=== PATIENT | female | born 1930 | race Caucasian/White ===

== ENCOUNTER 2017-03-17 15:59 | Inpatient (IN) | payer OTHER, MEDICARE ==
[~2017-03-17] VITALS: Ht 149.9 cm; Wt 59.0 kg
--- NOTE | ~2017-03-17 | EKG ---
[address] [address] ELECTROCARDIOGRAM REPORT Name: SANDEEP RUSTLLA Room #: 431-P ADM IN M.R.#: [id number] Admission: 03/17/17 Attend Phys: Kimber Burroughs Discharge: Date of : [birth year] Report #: [id number] THIS REPORT FOR: //name// [facility] ED Test Date: 2017-03-17 Test Time: 16:42:17 Pat Name: PHANI RUST Department: Room: [facility] Gender: F Campaign Manager: Sterling PATE : 1930 Requested By: Mehdi Ellison Order Number: [id number] MD: Jose Antonio Caal Measurements Intervals [place] Rate: 69 P: 51 [place]: 171 QRS: 18 QRSD: 99 T: 53 QT: 392 QTc: 420 Interpretive Statements Sinus rhythm No previous ECG available for comparison Electronically Signed On 03-17-2017 20:20:46 REPORTS ANALYSIS MANAGER by Jose Antonio Caal [email or web address] <ELECTRONICALLY SIGNED> By: Jose Antonio Caal MD 03/17/172019 41 1642 Jose Antonio Caal MD /KYLIE
--- NOTE | ~2017-03-17 | HC ---
[facility] [place] [address] CONSULTATION Name: PHANI RUST Room #: 429-P ADM IN M.R.#: [id number] Admission: 03/17/17 Attend Phys: Kimber Burroughs Discharge: Date of : [birth year] Report #: [id number] THIS REPORT FOR: //name// CC: ANTONY Burroughs CHIEF COMPLAINT: Left hip pain status post fall. HISTORY OF PRESENT ILLNESS: The patient is a pleasant 86-year-old female who was admitted through the emergency department at [facility] yesterday status post unwitnessed fall x 2 at her independent living facility at ____. The patient reports that she fell yesterday, was unable to stand up without assistance, but was able to proceed over to emergency button to push to get help. Then, per family reports about an hour and a half to two hours later, the patient fell second time. Following this fall, the patient reports significant left hip pain. She was transported by EMS to the Emergency Department at [facility] where she had x-rays and a CT scan performed of the left hip and pelvis showing superior pubic rami fracture as well as the greater trochanter fracture. The patient reports that she is resting comfortably today and is minimal pain. She reports that she typically lives alone in her independent living apartment and ambulates without assistance. The patient's daughter and son-in-law are at bedside today. MEDICATION ALLERGIES: SULFA, AMOXICILLIN. MEDICATIONS: Please see MORF dosing, but include donepezil, diltiazem, amlodipine, colestipol HCl, aspirin, losartan, memantine, travoprost, and Keflex. PAST MEDICAL AND SURGICAL HISTORY: Include hypertension and dementia. SOCIAL HISTORY: The patient reports that she lives alone in her independent living apartment at ____. She is a former tobacco user, quit greater than 1 year ago. She denies any alcohol or recreational drug use. PHYSICAL EXAMINATION: VITAL SIGNS: Blood pressure 156/64, pulse rate 76, temperature 36.9 degrees Celsius. GENERAL: The patient is awake, alert, in no acute distress. EXTREMITIES: Bilateral lower extremities neurovascularly intact. Left lower extremity, calf is soft, nontender. Pulses are present. No pain with range of motion of the foot and ankle. The patient complains of pain with attempted passive range of motion of the left hip. Tenderness to palpation of the left greater trochanteric bursa area as well as tenderness to palpation of the left anterior pelvis and groin region. SKIN: [place] [address] CONSULTATION Name: PHANI RUST Room #: 429-P [facility] IN .R.#: [id number] Admission: 03/17/17 Attend Phys: Kimber Burroughs Discharge: Date of : [birth year] Report #: [id number] IMAGING: CT scan of the left pelvis performed on 03/17/2017 shows an acute nondisplaced fracture of the left superior greater trochanter. No extension of the intertrochanteric femur, femoral head or neck is noted. Acute nondisplaced fracture at the distal left superior pubic ramus and left pubic bone. IMPRESSION: 1. Left greater trochanteric fracture, nondisplaced. 2. Left superior pubic rami and pubic bone fracture, status post fall. PLAN: We discussed with the patient and her family that these fractures at this time could be treated non-operatively. This would include limiting weightbearing on the left lower extremity with the use of wheelchair or walker for ambulation. We discussed the need for followup radiographs to assess fracture healing on an outpatient basis. We will continue to focus on pain management now but once she is considered stable from a medical standpoint, she could return to either in an independent capacity, but she may need chcf as she will be limited weightbearing on the left lower extremity over the next several weeks. The patient and her family are in agreement with this plan. <ELECTRONICALLY SIGNED> By: LIZABETH Bryant 03/19/17 1252 [id number] 39 LIZABETH Bryant /nt
--- NOTE | ~2017-03-17 | 2DMMODE ---
[facility] [address] [place] [address] 2 D/M-MODE ECHOCARDIOGRAM Name: PHANI RUST Room #: 431-P ADM IN M.R.#: [id number] Admission: 03/17/17 Attend Phys: Kimber Jennings Discharge: Date of : [birth year] Date of Service: 03/18/17 0908 Report #: [id number] THIS REPORT FOR: //name// APPROVED REPORT Study performed: 03/18/2017 08:19:47 EXAM: Comprehensive 2D, Doppler, and color-flow Echocardiogram Patient Location: Bedside Room #: 431 Status: routine BSA: 1.54 HR: 78 bpm BP: 161/54 mmHg Rhythm: NSR Other Information Study Quality: Adequate/no patient mobility Indications Sycnope, aortic murmur, HTN. 2D Dimensions RVDd: 30.96 mm LVEF(%): 61.29 (>50%) IVSd: 9.62 (7-11mm) LVOT Diam: 19.80 (18-24mm) LVDd: 34.69 mm PWd: 10.80 (7-11mm) Ascending Ao: 32.29 (22-36mm) LVDs: 23.57 (25-40mm) Aortic Root: 30.61 mm Hollingsworth's LVEF: 61.29 % Volumes Left Atrial Volume (Systole) Single Plane 4CH: 48.27 mL Single Plane 2CH: 56.33 mL LA ESV Index: 36.00 mL/m2 Aortic Valve AoV Peak Sonu.: 2.02 m/s AO Peak Gr.: 16.33 mmHg LVOT Max P.10 mmHg AO Mean Gr.: 10.12 mmHg AO V2 Mean: 1.53 m/s LVOT Max V: 1.24 m/s AO V2 VTI: 43.15 cm KATIE Vmax: 1.88 cm2 Mitral Valve [facility] [place] [address] 2 D/M-MODE ECHOCARDIOGRAM Name: PHANI RUST Room #: 431-P [facility] IN .R.#: [id number] Admission: 03/17/17 Attend Phys: Kimber Jennings Discharge: Date of : [birth year] Date of Service: 03/18/17 0908 Report #: [id number] E/A Ratio: 0.9 MV Decel. Time: 304.77 ms MV E Max Sonu.: 1.40 m/s MV A Sonu.: 1.64 m/s MV PHT: 88.38 ms IVRT: 64.59 ms Pulmonary Valve PV Peak Sonu.: 1.06 m/s PV Peak Gr.: 4.47 mmHg Pulmonary Vein P Vein S: 0.66 m/s P Vein A: 0.31 m/s P Vein D: 0.49 m/s P Vein A Dur.: 101.5 msec P Vein S/D Ratio: 1.35 Tricuspid Valve TR Peak Sonu.: 2.48 m/s RAP Estimate: 5.00 mmHg TR Peak Gr.: 24.61 mmHg PA Pressure: 30.00 mmHg Left Ventricle The left ventricle is normal size. There is normal LV segmental wall motion. There is normal left ventricular wall thickness. Left ventricular systolic function is normal. LVEF is 60-65%. Mild diastolic dysfunction is present (impaired relaxation pattern). Right Ventricle The right ventricle is normal size. The right ventricular systolic function is normal. Atria Left atrium is mildly dilated. The right atrium size is normal. Aortic Valve Aortic valve is calcified. Trace to mild aortic regurgitation. There is borederline mild valvular aortic stenosis. Calculated aortic valve area is 1.9 cm2 with maximum pressure gradient of 16 mmHg and mean pressure gradient of 10 mmHg. Mitral Valve Mitral valve leaflets are mildly calcified Moderate mitral annular calcification. No mitral regurgitation. Borderline mild mitral stenosis. Mean pressure gradient of 4mmHg. [address] [address] 2 D/M-MODE ECHOCARDIOGRAM Name: PHANI RUST Room #: 431-[facility] IN M.R.#: [id number] Admission: 03/17/17 Attend Phys: Kimber Jennings Discharge: Date of : [birth year] Date of Service: 03/18/17 0908 Report #: [id number] Tricuspid Valve The tricuspid valve is normal in structure. Trace to mild tricuspid regurgitation. Estimated PAP is 30mmHg. Pulmonic Valve The pulmonary valve is normal in structure. Trace pulmonic regurgitation. Great Vessels The aortic root is normal in size. The ascending aorta is normal in size. IVC is normal in size and collapses >50% with inspiration. Pericardium There is no pericardial effusion. <Conclusion> Left ventricular systolic function is normal. There is normal LV segmental wall motion. LVEF is 60-65%. Mild diastolic dysfunction Aortic valve is calcified. Mild valvular aortic stenosis: aortic valve area is 1.9 cm2 with maximum pressure gradient of 16 mmHg and mean pressure gradient of 10 mmHg. Mitral valve leaflets are mildly calcified. Moderate mitral annular calcification. No mitral regurgitation. Pulmonary artery pressure of 30mmHg There is no pericardial effusion. <ELECTRONICALLY SIGNED> By: Eleno Iraheta MD, FACC 03/18/17907 7 7 Eleno Iraheta MD, FACC /INF
[2017-03-17 15:59] VITALS: BP 146/48
[~2017-03-17 15:59] MED LIST: OXYCODONE HCL 55 MG PO
[2017-03-17 16:54] LABS: HEMATOCRIT 37.9 % (37.0-47.0); HEMOGLOBIN 12.6 gm/dL (12.0-15.0); MCH 27.7 pg (26.0-34.0); MCHC 33.2 g/dL (28.0-37.0); MCV 83.5 fL (80.0-100.0); PLATELET COUNT 225 thou/uL (150-400); RBC 4.53 mil/uL (4.20-5.00); RDW 13.2 % (10.5-14.5); WBC 11.3 thou/uL (4.0-11.0)
[2017-03-17 17:00] LABS: MANUAL DIFF YES
[2017-03-17 17:03] LABS: ANION GAP 6 mmol/L (7-16); BUN 26 mg/dL (7-18); CALCIUM 8.9 mg/dL (8.5-10.1); CHLORIDE 102 mmol/L (98-107); CO2 28 mmol/L (21-32); CREATININE 0.8 mg/dL (0.6-1.0); GLUCOSE 166 mg/dL (74-106); POTASSIUM 3.7 mmol/L (3.5-5.1); SODIUM 136 mmol/L (136-145)
[2017-03-17] MEDS ORDERED: ARICEPT 5 MG TAB5 MG PO (17:04)
[2017-03-17] MEDS ORDERED: CARDIZEM CD180 MG PO (17:05)
[2017-03-17] MEDS ORDERED: COLESTID1 GM PO (17:05)
[2017-03-17] MEDS ORDERED: NORVASC2.5 MG PO (17:05)
[2017-03-17] MEDS ORDERED: TRAVATAN Z2.5 ML OPHTHALMIC (17:06)
[2017-03-17] MEDS ORDERED: ASPIR 8181 MG PO (17:06)
[2017-03-17] MEDS ORDERED: COZAAR 50 MG TA50 M2 PO (17:06)
[2017-03-17] MEDS ORDERED: NAMENDA 10 MG T10 MG PO (17:06)
[2017-03-17] MEDS ORDERED: KEFLEX250 MG PO (17:07)
[2017-03-17 17:12] LABS: TROPONIN-I < 0.04 ng/mL (<0.06)
[2017-03-17 18:21] LABS: ABSOLUTE NEUTROPHILS 9.6 thou/uL (1.4-8.2); TOTAL CELL COUNT 100
[2017-03-17 18:22] LABS: ANISOCYTOSIS SLIGHT; MICROCYTES SLIGHT
[2017-03-17 18:58] LABS: URINE BILIRUBIN NEGATIVE (Negative); URINE BLOOD 2+ (Negative); URINE COLOR YELLOW; URINE GLUCOSE-RANDOM* NEGATIVE (Negative); URINE KETONES TRACE (Negative); URINE NITRITE POSITIVE (Negative); URINE PROTEIN (DIPSTICK) TRACE (Negative); URINE SPECIFIC GRAVITY 1.025 (1.003-1.035); URINE UROBILINOGEN 0.2 E.U./dl (0.2-1.0)
[2017-03-17 19:09] LABS: BACTERIA >30 Many /HPF (None Seen); CASTS None Seen /LPF (None Seen); CRYSTALS None Seen /LPF (None Seen); SQUAMOUS 0-3 Few /LPF (0-3); URINE RBC 3-10 Few /HPF (0-2); URINE WBC >25 Many /HPF (0-5)
[2017-03-17 20:00] VITALS: BP 155/53
[2017-03-18 04:00] VITALS: BP 161/54
[2017-03-18 08:10] VITALS: BP 156/64
[2017-03-18 15:02] VITALS: BP 159/55
[2017-03-18 19:25] VITALS: BP 154/62; BP 159/55
[2017-03-18 20:28] VITALS: BP 149/49
[2017-03-19 05:17] VITALS: BP 122/48
[2017-03-19 08:19] VITALS: BP 169/70
[2017-03-19 16:19] VITALS: BP 156/53
[2017-03-19 19:46] VITALS: BP 150/58
[2017-03-20 04:13] VITALS: BP 153/40
[2017-03-20 04:38] LABS: HEMATOCRIT 36.3 % (37.0-47.0); HEMOGLOBIN 12.1 gm/dL (12.0-15.0); MCH 27.8 pg (26.0-34.0); MCHC 33.2 g/dL (28.0-37.0); MCV 83.7 fL (80.0-100.0); RBC 4.34 mil/uL (4.20-5.00); RDW 13.5 % (10.5-14.5); WBC 6.2 thou/uL (4.0-11.0)
[2017-03-20 04:49] LABS: CALCIUM 8.2 mg/dL (8.5-10.1); CREATININE 0.5 mg/dL (0.6-1.0); MAGNESIUM 1.9 mg/dL (1.8-2.4)
[2017-03-20 04:51] LABS: POTASSIUM 2.8 mmol/L (3.5-5.1)
[2017-03-20 08:06] VITALS: BP 148/51
[2017-03-20 12:25] VITALS: BP 134/50
[2017-03-20 15:58] VITALS: BP 150/45
[2017-03-20 17:00] LABS: CALCIUM 8.2 mg/dL (8.5-10.1); CREATININE 0.4 mg/dL (0.6-1.0)
[2017-03-20 17:05] LABS: POTASSIUM 4.4 mmol/L (3.5-5.1)
[2017-03-20 20:30] VITALS: BP 154/46
[2017-03-21 03:36] LABS: HEMATOCRIT 37.9 % (37.0-47.0); HEMOGLOBIN 12.5 gm/dL (12.0-15.0); MCH 27.5 pg (26.0-34.0); MCV 83.5 fL (80.0-100.0); RBC 4.54 mil/uL (4.20-5.00); RDW 13.5 % (10.5-14.5)
[2017-03-21 03:45] LABS: CALCIUM 8.1 mg/dL (8.5-10.1); CREATININE 0.4 mg/dL (0.6-1.0); MAGNESIUM 2.3 mg/dL (1.8-2.4); POTASSIUM 4.8 mmol/L (3.5-5.1)
[2017-03-21 04:00] VITALS: BP 145/40
[2017-03-21 07:31] VITALS: BP 167/48
[2017-03-21] MEDS ORDERED: HYDROCODON-ACE1 EAC7 PO (10:50)
== END 2017-03-21 12:49 | DRG 871 ==
LOC: ER 15:59 → EROBS 17:50 → 4E 17:50
PROVIDERS: Hospitalist; Internal Medicine; Nurse Practitioner
DX: A41.9 Sepsis, unspecified organism (principal); S72.115A Nondisplaced fracture of greater trochanter of left femur, initial encounter for closed fracture; S32.512A Fracture of superior rim of left pubis, initial encounter for closed fracture; N39.0 Urinary tract infection, site not specified; I10 Essential (primary) hypertension; F03.90 Unspecified dementia, unspecified severity, without behavioral disturbance, psychotic disturbance, mood disturbance, and anxiety; W19.XXXA Unspecified fall, initial encounter; E87.6 Hypokalemia; Z28.21 Immunization not carried out because of patient refusal; Z88.1 Allergy status to other antibiotic agents; Z88.2 Allergy status to sulfonamides; Z87.891 Personal history of nicotine dependence; Y93.89 Activity, other specified; Y92.89 Other specified places as the place of occurrence of the external cause; Y99.8 Other external cause status
CPT/HCPCS: 10183

== ENCOUNTER 2017-05-01 13:14 | Inpatient (IN) | payer OTHER, MEDICARE ==
[~2017-05-01] VITALS: Ht 149.9 cm; Wt 47.9 kg
--- NOTE | ~2017-05-01 | EKG ---
[address] [address] ELECTROCARDIOGRAM REPORT Name: PHANI RUST Room #: 217- ADM IN M.R.#: [id number] Admission: 05/01/17 Attend Phys: Abel Whittington MD Discharge: Date of : [birth year] Report #: [id number] THIS REPORT FOR: //name// [facility] Test Date: 2017-05-02 Test Time: 11:24:38 Pat Name: PHANI RUST Department: Room: 217 Gender: F Sock Lining Examiner: TRISTEN : 1930 Requested By: Ashley Mo Order Number: [id number] MD: Jose Antonio Caal Measurements Intervals [place] Rate: 115 P: [place]: QRS: 21 QRSD: 80 T: 19 QT: 337 QTc: 466 Interpretive Statements Atrial fibrillation Borderline T wave abnormalities Baseline wander in lead(s) V1 Compared to ECG 05/01/2017 13:20:22 T-wave abnormality now present Sinus tachycardia no longer present Early repolarization no longer present Electronically Signed On 05-02-2017 17:17:07 PRINTING SCREEN ASSEMBLER by Jose Antonio Caal [email or web address] <ELECTRONICALLY SIGNED> By: Jose Antonio Caal MD 05/02/17 1717 1124 1124 Jose Antonio Caal MD /EPI
--- NOTE | ~2017-05-01 | EKG ---
[place] [address] [employer] [facility] [place] [address] ELECTROCARDIOGRAM REPORT Name: SANDEEP RUSTLLA Room #: 217-P ADM IN M.R.#: [id number] Admission: 05/01/17 Attend Phys: Abel Whittington MD Discharge: Date of : [birth year] Report #: [id number] THIS REPORT FOR: //name// [facility] ED Test Date: 2017-05-01 Test Time: 13:20:22 Pat Name: PHANI RUST Department: Room: [facility] Gender: F Visual Educator: ELIJAH : 1930 Requested By: Lindy Emmanuel Order Number: [id number] MD: Jose Antonio Caal Measurements Intervals [place] Rate: 100 P: 0 WI: 150 QRS: 21 QRSD: 79 T: 31 QT: 342 QTc: 442 Interpretive Statements Sinus tachycardia with irregular rate RSR' in V1 or V2, probably normal variant Nonspecific repol abnormality, diffuse leads Baseline wander in lead(s) V6 Compared to ECG 03/17/2017 16:42:17 RSR' in V1 or V2 now present Early repolarization now present Sinus rhythm no longer present Electronically Signed On 05-01-2017 22:29:35 DENTAL EQUIPMENT INSTALLER AND SERVICER by Jose Antonio Caal [email or web address] <ELECTRONICALLY SIGNED> By: Jose Antonio Caal MD 05/01/17 2229 19 19 Jose Antonio Caal MD /EPI
--- NOTE | ~2017-05-01 | 2DMMODE ---
[facility] [address] [place] [address] 2 D/M-MODE ECHOCARDIOGRAM Name: PHANI RUST Room #: 217-P ADM IN M.R.#: [id number] Admission: 05/01/17 Attend Phys: Abel Whittington, Discharge: Date of : [birth year] Date of Service: 05/03/17 1207 Report #: [id number] THIS REPORT FOR: //name// APPROVED REPORT Study performed: 05/02/2017 10:45:05 EXAM: Comprehensive 2D, Doppler, and color-flow Echocardiogram Patient Location: Bedside Room #: 217 Status: on-call BSA: 1.49 HR: 90 bpm BP: 134/64 mmHg Rhythm: Atrial Fibrillation Other Information Study Quality: Adequate Risk Factors: Cardiac Risk Factors: HTN Indications Congestive Heart Failure Atrial Fibrillation 2D Dimensions LVEF(%): 66.56 (>50%) IVSd: 8.99 (7-11mm) LVOT Diam: 19.00 (18-24mm) LVDd: 40.32 mm PWd: 10.00 (7-11mm) Ascending Ao: 25.52 (22-36mm) LVDs: 25.68 (25-40mm) Aortic Root: 25.32 mm LV Single Plane 4CH: 58.91 % LV Single Plane 2CH: 56.48 % Hollingsworth's LVEF: 57.69 % Biplane EF: 56.3 % Volumes Left Atrial Volume (Systole) Single Plane 4CH: 40.48 mL Single Plane 2CH: 17.49 mL LA ESV Index: 19.00 mL/m2 Aortic Valve AoV Peak Sonu.: 1.28 m/s AO Peak Gr.: 6.50 mmHg LVOT Max P.59 mmHg [facility] [address] [place] [address] 2 D/M-MODE ECHOCARDIOGRAM Name: PHANI RUST Room #: 217-[facility] IN M.R.#: [id number] Admission: 05/01/17 Attend Phys: Abel Whittington, Discharge: Date of : [birth year] Date of Service: 05/03/17 1207 Report #: [id number] Mean Gr.: 3.49 mmHg LVOT Mean P.41 mmHg AO V2 Mean: 0.86 m/s LVOT Max V: 0.83 m/s AO V2 VTI: 20.28 cm LVOT Mean V: 0.55 m/s KATIE (VTI): 2.00 cm2 LVOT V1 VTI: 13.68 cm KATIE Vmax: 1.92 cm2 SV (LVOT): 40.60 mL Mitral Valve MV Peak Gr.: 12.08 mmHg MV Mean Gr.: 5.52 mmHg MV Max Sonu.: 1.73 m/s MV Mean Sonu.: 1.05 m/s MV VTI: 319.56 mm MVA VTI: 127.05 mm2 Pulmonary Valve PV Peak Sonu.: 0.81 m/s PV Peak Gr.: 2.66 mmHg Tricuspid Valve TR Peak Sonu.: 2.47 m/s RAP Estimate: 10.00 mmHg TR Peak Gr.: 24.51 mmHg PA Pressure: 35.00 mmHg Left Ventricle The left ventricle is normal size. There is normal LV segmental wall motion. There is normal left ventricular wall thickness. Left ventricular systolic function is normal. The left ventricular ejection fraction is within the normal range. LVEF is 60%. This study is not technically sufficient to allow evaluation of the LV diastolic function due to atrial fibrillation. Right Ventricle The right ventricle is normal size. The right ventricular systolic function is normal. Atria The left atrium size is normal. The right atrium size is normal. Aortic Valve Aortic valve is calcified. No aortic regurgitation is present. There is no aortic valvular stenosis. Mitral Valve There is mild mitral annular calcification. Mitral valve leaflets are mildly thickened. Mild mitral regurgitation. Mild mitral stenosis. [address] [address] 2 D/M-MODE ECHOCARDIOGRAM Name: PHANI RUST Room #: 217-P [facility] IN M.R.#: [id number] Admission: 05/01/17 Attend Phys: Abel Whittington, Discharge: Date of : [birth year] Date of Service: 05/03/17 1207 Report #: [id number] Mean pressure gradient is 6 mmHg. Tricuspid Valve The tricuspid valve is normal in structure. Mild tricuspid regurgitation. Pulmonary artery pressure is 35 mmHg. Pulmonic Valve The pulmonary valve is normal in structure. There is no pulmonic valvular regurgitation. Great Vessels The aortic root is normal in size. IVC is normal in size and collapses <50% with inspiration. Pericardium There is no pericardial effusion. <Conclusion> The left ventricle is normal size. LVEF is 60%. Aortic valve is calcified. No aortic regurgitation is present. There is no aortic valvular stenosis. There is mild mitral annular calcification. Mitral valve leaflets are mildly thickened. Mild mitral regurgitation. Mild mitral stenosis. Mean pressure gradient is 6 mmHg. The tricuspid valve is normal in structure. Mild tricuspid regurgitation. Pulmonary artery pressure is 35 mmHg. The pulmonary valve is normal in structure. There is no pericardial effusion. <ELECTRONICALLY SIGNED> By: Leroy Deluca MD 05/03/17 1207 06 06 Leroy Deluca MD /INF
[~2017-05-01 13:14] MED LIST changes: +ARICEPT 5 MG TAB5 MG PO; +ASPIR 8181 MG PO; +CARDIZEM CD180 MG PO; +COLESTID1 GM PO; +COZAAR 50 MG TA50 M2 PO; +HYDROCODON-ACE1 EAC7 PO; +KEFLEX250 MG PO; +NAMENDA 10 MG T10 MG PO; +NORVASC2.5 MG PO; +TRAVATAN Z2.5 ML OPHTHALMIC
[2017-05-01 13:15] VITALS: BP 128/53
[2017-05-01 13:42] LABS: ABSOLUTE NEUTROPHILS 5.7 thou/uL (1.4-8.2); BASOPHILS 0.5 % (0.0-2.0); HEMATOCRIT 37.8 % (37.0-47.0); HEMOGLOBIN 12.6 gm/dL (12.0-15.0); LYMPHOCYTES 11.6 % (24.0-44.0); MCH 27.7 pg (26.0-34.0); MCHC 33.3 g/dL (28.0-37.0); MCV 83.4 fL (80.0-100.0); MONOCYTES 7.9 % (1.0-8.0); PLATELET COUNT 252 thou/uL (150-400); RBC 4.54 mil/uL (4.20-5.00); RDW 14.1 % (10.5-14.5); WBC 7.2 thou/uL (4.0-11.0)
[2017-05-01 13:56] LABS: ANION GAP 7 mmol/L (7-16); BUN 15 mg/dL (7-18); CALCIUM 8.9 mg/dL (8.5-10.1); CHLORIDE 98 mmol/L (98-107); CO2 29 mmol/L (21-32); CREATININE 0.7 mg/dL (0.6-1.0); GLUCOSE 163 mg/dL (74-106); POTASSIUM 3.5 mmol/L (3.5-5.1); SODIUM 134 mmol/L (136-145)
[2017-05-01 14:04] LABS: ALBUMIN 3.3 g/dL (3.4-5.0); SGOT 45 U/L (15-37); SGPT 94 U/L (30-65); TOTAL BILIRUBIN 0.3 mg/dL (<0.1-1.0); TOTAL PROTEIN 7.3 g/dL (6.4-8.2); TROPONIN-I < 0.04 ng/mL (<0.06)
[2017-05-01 15:39] VITALS: BP 128/53
[2017-05-01] MEDS ORDERED: NORVASC2.5 MG PO (15:53)
[2017-05-01] MEDS ORDERED: PROBIOTIC1 EAC1 PO (15:53)
[2017-05-01] MEDS ORDERED: ARICEPT 5 MG TAB5 MG PO (15:54)
[2017-05-01] MEDS ORDERED: LASIX 40 MG TAB40 M2 PO (15:57)
[2017-05-01] MEDS ORDERED: FLONASE 0.05%50 MCG NASAL (15:57)
[2017-05-01 16:31] VITALS: BP 128/53
[2017-05-01] MEDS ORDERED: ERGOCAL2500 UNIT PO (19:00)
[2017-05-01] MEDS ORDERED: LIDODERM1 EACH TRANSDERM (19:13)
[2017-05-01] MEDS ORDERED: CARDIZEM CD 30300 M1 (19:21)
[2017-05-01 19:24] VITALS: BP 144/76
[2017-05-01] MEDS ORDERED: MELATONIN1 MG PO (19:24)
[2017-05-01 23:49] VITALS: BP 146/69
[2017-05-02 03:27] VITALS: BP 165/63
[2017-05-02 08:00] VITALS: BP 134/64
[2017-05-02 10:59] LABS: URINE BILIRUBIN NEGATIVE (Negative); URINE BLOOD 1+ (Negative); URINE CLARITY CLEAR; URINE COLOR YELLOW; URINE GLUCOSE-RANDOM* NEGATIVE (Negative); URINE KETONES NEGATIVE (Negative); URINE LEUKOCYTES NEGATIVE (Negative); URINE NITRITE NEGATIVE (Negative); URINE PROTEIN (DIPSTICK) NEGATIVE (Negative); URINE SPECIFIC GRAVITY 1.015 (1.005-1.035); URINE UROBILINOGEN 0.2 E.U./dl (0.2-1.0)
[2017-05-02 11:13] LABS: CASTS None Seen /LPF (None Seen); CRYSTALS None Seen /LPF (None Seen); SQUAMOUS 4-10 Moderate /LPF (0-3); URINE RBC 0-2 Rare /HPF (0-2); URINE WBC None Seen /HPF (0-5)
[2017-05-02 11:14] LABS: BACTERIA 1-9 Few /HPF (None Seen)
[2017-05-02 11:33] VITALS: BP 144/102
[2017-05-02 15:58] VITALS: BP 136/64
[2017-05-02 19:48] VITALS: BP 129/58
[2017-05-03 04:51] VITALS: BP 137/62
[2017-05-03 07:25] VITALS: BP 134/64
[2017-05-03 11:01] LABS: HEMATOCRIT 38.1 % (37.0-47.0); HEMOGLOBIN 12.8 gm/dL (12.0-15.0); MCH 27.4 pg (26.0-34.0); MCHC 33.6 g/dL (28.0-37.0); MCV 81.6 fL (80.0-100.0); RBC 4.67 mil/uL (4.20-5.00); RDW 13.9 % (10.5-14.5); WBC 6.8 thou/uL (4.0-11.0)
[2017-05-03 11:10] LABS: CALCIUM 8.4 mg/dL (8.5-10.1); CREATININE 0.6 mg/dL (0.6-1.0)
[2017-05-03 19:06] VITALS: BP 137/73
[2017-05-04 03:43] VITALS: BP 154/67
[2017-05-04 08:00] VITALS: BP 127/53
[2017-05-04 08:52] LABS: CREATININE 0.6 mg/dL (0.6-1.0); MAGNESIUM 1.8 mg/dL (1.8-2.4); POTASSIUM 3.5 mmol/L (3.5-5.1)
[2017-05-04 12:00] VITALS: BP 115/53
[2017-05-04 13:29] VITALS: BP 115/53
[2017-05-04 15:25] LABS: BE(vivo) 4.6 mmol/L (-2 to +3); HCO3 28.9 mmol/L (22.0-26.0); PO2 60.1 mmHg (80.0-100.0); pH 7.456 (7.360-7.450); sO2 92.2 % (92.0-98.0)
[2017-05-04 16:00] VITALS: BP 139/52
[2017-05-04 21:13] VITALS: BP 124/54
[2017-05-05 05:26] VITALS: BP 136/51
[2017-05-05 08:10] VITALS: BP 137/65
[2017-05-05 09:14] LABS: CALCIUM 8.7 mg/dL (8.5-10.1); CREATININE 0.6 mg/dL (0.6-1.0); MAGNESIUM 2.1 mg/dL (1.8-2.4); POTASSIUM 3.5 mmol/L (3.5-5.1)
[2017-05-05] MEDS ORDERED: MUCINEX600 MG PO (10:23)
[2017-05-05] MEDS ORDERED: CARDIZEM CD180 MG PO (10:23)
[2017-05-05] MEDS ORDERED: MIRALAX17 GM PO (10:23)
[2017-05-05] MEDS ORDERED: ENOXAPARIN40 MG/0.1 SUBQ (10:23)
[2017-05-05] MEDS ORDERED: TOPROL XL25 MG PO (10:23)
[2017-05-05] MEDS ORDERED: PULMICORT0.5 MG/22 INH (10:23)
[2017-05-05] MEDS ORDERED: IPRATROPIU0.2 MG/1 M INH (10:23)
[2017-05-05] MEDS ORDERED: LEVALBUTER0.63 MG/3 INH ×2 (10:23)
[2017-05-05] MEDS ORDERED: POTASSIUM20 PO (10:23)
[2017-05-05 12:10] VITALS: BP 143/57
[2017-05-05] MEDS ORDERED: REMERON15 MG PO (13:08)
[2017-05-05 15:48] VITALS: BP 140/70
[2017-05-06 01:08] LABS: ADENOVIRUS Negative (Negative); INFLUENZA A Positive (Negative); INFLUENZA B Negative (Negative); METAPNEUMOVIRUS Negative (Negative); PARAINFLUENZA 1 Negative (Negative); PARAINFLUENZA 2 Negative (Negative); PARAINFLUENZA 3 Negative (Negative); RHINOVIRUS Negative (Negative); RSV A Negative (Negative); RSV B Negative (Negative)
[2017-05-06 03:30] LABS: CALCIUM 8.5 mg/dL (8.5-10.1); CREATININE 0.5 mg/dL (0.6-1.0); MAGNESIUM 1.9 mg/dL (1.8-2.4); POTASSIUM 3.3 mmol/L (3.5-5.1)
[2017-05-06 04:21] VITALS: BP 126/51
[2017-05-06 08:32] VITALS: BP 127/57
[2017-05-06 11:23] VITALS: BP 122/65
[2017-05-06 21:36] VITALS: BP 132/69
[2017-05-07 04:14] LABS: CALCIUM 8.5 mg/dL (8.5-10.1); CREATININE 0.5 mg/dL (0.6-1.0); MAGNESIUM 1.8 mg/dL (1.8-2.4); POTASSIUM 3.7 mmol/L (3.5-5.1)
[2017-05-07 04:26] VITALS: BP 144/67
[2017-05-07] MEDS ORDERED: TAMIFLU30 MG PO (09:46)
[2017-05-07 12:10] VITALS: BP 121/60
== END 2017-05-07 15:15 | DRG 291 ==
LOC: ER 13:14 → 2N 15:05 → EROBS 15:05 → 2N 17:05
PROVIDERS: Internal Medicine; Internal Medicine Pulmonary Disease; Nurse Practitioner Adult Health; Nurse Practitioner Gerontology; Physician Assistant
DX: I11.0 Hypertensive heart disease with heart failure (principal); J96.01 Acute respiratory failure with hypoxia; J90 Pleural effusion, not elsewhere classified; E44.0 Moderate protein-calorie malnutrition; I50.31 Acute diastolic (congestive) heart failure; I48.91 Unspecified atrial fibrillation; J11.1 Influenza due to unidentified influenza virus with other respiratory manifestations; F03.90 Unspecified dementia, unspecified severity, without behavioral disturbance, psychotic disturbance, mood disturbance, and anxiety; Z88.1 Allergy status to other antibiotic agents; Z88.2 Allergy status to sulfonamides; Z87.891 Personal history of nicotine dependence; Z79.899 Other long term (current) drug therapy; Z79.82 Long term (current) use of aspirin; Z86.73 Personal history of transient ischemic attack (TIA), and cerebral infarction without residual deficits; Z68.21 Body mass index [BMI] 21.0-21.9, adult; Z87.81 Personal history of (healed) traumatic fracture
CPT/HCPCS: 10081

== ENCOUNTER 2018-04-06 07:53 | Emergency (ER) | payer OTHER, MEDICARE ==
[~2018-04-06] VITALS: Ht 157.5 cm; Wt 61.2 kg
[~2018-04-06 07:53] MED LIST changes: +CARDIZEM CD 30300 M1; +ENOXAPARIN40 MG/0.1 SUBQ; +ERGOCAL2500 UNIT PO; +FLONASE 0.05%50 MCG NASAL; +IPRATROPIU0.2 MG/1 M INH; +LASIX 40 MG TAB40 M2 PO; +LEVALBUTER0.63 MG/3 INH; +LIDODERM1 EACH TRANSDERM; +MELATONIN1 MG PO; +MIRALAX17 GM PO; +MUCINEX600 MG PO; +POTASSIUM20 PO; +PROBIOTIC1 EAC1 PO; +PULMICORT0.5 MG/22 INH; +REMERON15 MG PO; +TAMIFLU30 MG PO; +TOPROL XL25 MG PO
[2018-04-06] MEDS ORDERED: ACIDOPHILUS1 EAC4 PO (08:20)
[2018-04-06] MEDS ORDERED: XANAX 0.25 MG0.25 MG PO (08:20)
[2018-04-06] MEDS ORDERED: AZOPT OPHTH1 %/10 M1 OP (08:23)
[2018-04-06] MEDS ORDERED: COLESTID1 GM PO (08:26)
[2018-04-06] MEDS ORDERED: LOPERAMIDE 2 MG2 M1 PO (08:29)
[2018-04-06] MEDS ORDERED: REFRESH CELLUVI1 APP OPHTHALMIC (08:31)
[2018-04-06] MEDS ORDERED: TYLENOL325 MG PO (08:33)
[2018-04-06] MEDS ORDERED: VITAMIN D2000 UNIT PO (08:34)
[2018-04-06] MEDS ORDERED: ZUPLENZ4 MG PO (08:35)
[2018-04-06 09:20] VITALS: BP 93/68
== END 2018-04-06 10:06 | disposition home or self-care (01) ==
LOC: ER 07:53
DX: S00.83XA Contusion of other part of head, initial encounter (principal); S40.012A Contusion of left shoulder, initial encounter; S51.812A Laceration without foreign body of left forearm, initial encounter; I10 Essential (primary) hypertension; F03.90 Unspecified dementia, unspecified severity, without behavioral disturbance, psychotic disturbance, mood disturbance, and anxiety; Z87.891 Personal history of nicotine dependence; Z88.1 Allergy status to other antibiotic agents; Z88.2 Allergy status to sulfonamides; W05.0XXA Fall from non-moving wheelchair, initial encounter; Y93.89 Activity, other specified; Y92.89 Other specified places as the place of occurrence of the external cause; Y99.8 Other external cause status

== ENCOUNTER 2018-04-08 09:20 | Inpatient (IN) | payer OTHER, MEDICARE ==
[~2018-04-08] VITALS: Ht 152.4 cm; Wt 49.9 kg
--- NOTE | ~2018-04-08 | HC ---
[facility] [place] [address] CONSULTATION Name: PHANI RUST Room #: 216-P ADM IN M.R.#: [id number] Admission: 04/08/18 Attend Phys: Kimber Burroughs Discharge: Date of : [birth year] Report #: [id number] THIS REPORT FOR: //name// CC: See Burroughs DATE OF SERVICE: 04/08/2018 REASON FOR CONSULTATION: Left clavicle fracture. HISTORY OF PRESENT ILLNESS: The patient is an 87-year-old female with a significant amount of dementia who had sustained a fall, complaining of left shoulder pain. She apparently was evaluated at [place], x-rays did not show any acute finding. She then was evaluated again and clavicle x-rays were taken and distal clavicle fracture was diagnosed. She was admitted due to AFib with rapid ventricular response. She complains of left shoulder pain. REVIEW OF SYSTEMS: Unable to be obtained due to the patient's confusion and inability to cooperate with the physical examination. Examination was significantly limited due to this. PAST MEDICAL HISTORY: Obtained from the patient's medical record. There is no family at bedside and the patient's severe dementia limits her ability to give a history. She has atrial fibrillation, hypertension, significant dementia, dysphagia, and difficulty walking. CURRENT MEDICATIONS: Include mirtazapine, metoprolol, diltiazem, potassium chloride, guaifenesin, and polyethylene glycol. ALLERGIES: AMOXICILLIN AND SULFA. SOCIAL HISTORY: Has difficulty ambulating. No alcohol use or cigarette smoking in the past. LABORATORY DATA: Done on the date of admission show white blood cell count 9.8, hemoglobin 13.4, hematocrit 40.6, platelet count 212. Chemistry shows potassium is elevated at 5.5. Lactic acid was elevated at 3.8 and a repeat draw was normal at 2. PHYSICAL EXAMINATION: The patient is awake and alert. She is anxious and fearful. She has significant difficulty tolerating the blood pressure cuff. She has a significant amount of edema and ecchymosis to her left shoulder. Examination of her bilateral upper extremities, she is able to squeeze my hand with 5/5 strength on the left. Again, motor and sensory exam are unable to be obtained. Right upper extremity is nontender to palpation. Left upper [address] [address] CONSULTATION Name: PHANI RUST Room #: [address] [place] [address] IN M.R.#: [id number] Admission: 04/08/18 Attend Phys: Kimber Burroughs Discharge: Date of : [birth year] Report #: [id number] extremity is significantly tender at the distal clavicle and proximal humerus. There is no significant pain with gentle humerus, elbow or wrist or hand motion on the left. No pain with range of motion on the right. Bilateral lower extremity exam, again motor and sensory exam are unable to be obtained. There is no tenderness to palpation throughout the entire lower extremities and no pain with gentle range of motion of all joints in the lower extremities. RADIOGRAPHS: AP and oblique view of the left distal clavicle show a comminuted relatively well aligned distal clavicle fracture. IMPRESSION AND PLAN: Left distal clavicle fracture in an 87-year-old female with significant dementia. This is in good alignment so at this point I feel she has a potential to do well with conservative treatment of a sling. She is to be nonweightbearing on that side and she may follow up with me in my outpatient clinic at [facility], Dr. Ade Shepard; please call my partners this weekend if she needs to be seen again. Otherwise, I will sign off. She should see me in my clinic or one of my partners if necessary in 7-10 days. Thank you very much for allowing me to participate in care of this patient. By: 1633 06 Ade Shepard MD /nt
--- NOTE | ~2018-04-08 | EKG ---
[place] [address] [facility] [place] [address] ELECTROCARDIOGRAM REPORT Name: SANDEEP RUSTLLA Room #: 216-P ADM IN M.R.#: [id number] Admission: 04/08/18 Attend Phys: Kimber Burroughs Discharge: Date of : [birth year] Report #: [id number] THIS REPORT FOR: //name// [facility] ED Test Date: 2018-04-08 Test Time: 09:33:05 Pat Name: PHANI RUST Department: Room: 216 Gender: F Dairy Worker: Jeanette PARISH : 1930 Requested By: Damien Chance Order Number: [id number] MD: Eleno Iraheta Measurements Intervals [place] Rate: 154 P: [place]: QRS: 26 QRSD: 82 T: 256 QT: 327 QTc: 524 Interpretive Statements Atrial fibrillation with rapid V-rate Low voltage, precordial leads Repolarization abnormality, prob rate related Compared to ECG 05/02/2017 11:24:38 Heart rate has increased Electronically Signed On 04-08-2018 16:44:46 DOCKMASTER by Eleno Iraheta [email or web address] <ELECTRONICALLY SIGNED> By: Eleno Iraheta MD, [facility] 04/08/18 1644 0933 0933 Eleno Iraheta MD, [facility] /EPI
[~2018-04-08 09:20] MED LIST changes: +ACIDOPHILUS1 EAC4 PO; +AZOPT OPHTH1 %/10 M1 OP; +LOPERAMIDE 2 MG2 M1 PO; +REFRESH CELLUVI1 APP OPHTHALMIC; +TYLENOL325 MG PO; +VITAMIN D2000 UNIT PO; +XANAX 0.25 MG0.25 MG PO; +ZUPLENZ4 MG PO
[2018-04-08 09:52] LABS: ABSOLUTE NEUTROPHILS 7.5 thou/uL (1.4-8.2); BASOPHILS 0.3 % (0.0-2.0); EOSINOPHILS 0.3 % (0.0-3.0); HEMATOCRIT 40.6 % (37.0-47.0); HEMOGLOBIN 13.4 gm/dL (12.0-15.0); LYMPHOCYTES 14.7 % (24.0-44.0); MCH 27.9 pg (26.0-34.0); MCHC 32.9 g/dL (28.0-37.0); MCV 84.8 fL (80.0-100.0); MONOCYTES 8.1 % (1.0-8.0); PLATELET COUNT 212 thou/uL (150-400); POLYS 76.6 % (36.0-66.0); RBC 4.78 mil/uL (4.20-5.00); RDW 15.3 % (10.5-14.5); WBC 9.8 thou/uL (4.0-11.0)
[2018-04-08 09:56] LABS: URINE BILIRUBIN NEGATIVE (Negative); URINE BLOOD TRACE (Negative); URINE CLARITY CLEAR; URINE COLOR YELLOW; URINE GLUCOSE-RANDOM* NEGATIVE (Negative); URINE KETONES NEGATIVE (Negative); URINE NITRITE-REFLEX NEGATIVE (Negative); URINE PROTEIN (DIPSTICK) NEGATIVE (Negative); URINE SPECIFIC GRAVITY 1.025 (1.005-1.035); URINE UROBILINOGEN 0.2 E.U./dl (0.2-1.0)
[2018-04-08 09:57] LABS: URINE LEUKOCYTES-REFLEX 2+ (Negative)
[2018-04-08 10:00] LABS: ANION GAP 10 mmol/L (7-16); BUN 14 mg/dL (7-18); CALCIUM 9.2 mg/dL (8.5-10.1); CHLORIDE 102 mmol/L (98-107); CO2 24 mmol/L (21-32); CREATININE 0.8 mg/dL (0.6-1.0); GLUCOSE 224 mg/dL (74-106); POTASSIUM 5.5 mmol/L (3.5-5.1); SODIUM 136 mmol/L (136-145)
[2018-04-08 10:09] LABS: TROPONIN-I <0.06 ng/mL (<0.06)
[2018-04-08 10:09] LABS: CASTS None Seen /LPF (None Seen); CRYSTALS None Seen /LPF (None Seen); SQUAMOUS 0-3 Few /LPF (0-3); URINE RBC 0-2 Rare /HPF (0-2); WBC CLUMPS Few (None Seen)
[2018-04-08 11:01] VITALS: BP 121/49
[2018-04-08 11:46] VITALS: BP 118/57
[2018-04-08 11:58] LABS: TSH 1.339 uIU/mL (0.358-3.740)
[2018-04-08 12:10] VITALS: BP 115/56
[2018-04-08 13:50] VITALS: BP 109/56
[2018-04-08 16:00] VITALS: BP 121/95
[2018-04-08 19:49] VITALS: BP 125/61
[2018-04-09 08:00] VITALS: BP 112/81
[2018-04-09 11:57] LABS: ALBUMIN 2.9 g/dL (3.4-5.0); CALCIUM 8.7 mg/dL (8.5-10.1); CREATININE 0.6 mg/dL (0.6-1.0); PHOSPHORUS 3.4 mg/dL (2.5-4.9); POTASSIUM 3.3 mmol/L (3.5-5.1)
[2018-04-09 12:17] VITALS: BP 130/75
[2018-04-09 16:00] VITALS: BP 125/48
[2018-04-09 19:13] VITALS: BP 139/66
[2018-04-10 04:11] VITALS: BP 145/68
[2018-04-10 08:00] VITALS: BP 126/70
[2018-04-10] MEDS ORDERED: CEFUROXIME250 MG PO (09:44)
[2018-04-10] MEDS ORDERED: ATENOLOL 50MG T50 M1 PO (09:45)
[2018-04-10] MEDS ORDERED: MACRODANTIN50 MG PO (09:45)
== END 2018-04-10 14:40 | disposition short-term general hospital (02) | DRG 542 ==
LOC: ER 09:20 → 2N 10:58 → EROBS 10:58 → 2N 11:46
PROVIDERS: Hospitalist; Physician Assistant
DX: M80.012A Age-related osteoporosis with current pathological fracture, left shoulder, initial encounter for fracture (principal); E43 Unspecified severe protein-calorie malnutrition; N39.0 Urinary tract infection, site not specified; E46 Unspecified protein-calorie malnutrition; I10 Essential (primary) hypertension; F03.90 Unspecified dementia, unspecified severity, without behavioral disturbance, psychotic disturbance, mood disturbance, and anxiety; H40.9 Unspecified glaucoma; Z66 Do not resuscitate; I48.2 Chronic atrial fibrillation; R29.6 Repeated falls; E55.9 Vitamin D deficiency, unspecified; Z68.21 Body mass index [BMI] 21.0-21.9, adult; Z88.1 Allergy status to other antibiotic agents; Z88.2 Allergy status to sulfonamides; Z87.891 Personal history of nicotine dependence; Z79.82 Long term (current) use of aspirin; Z79.899 Other long term (current) drug therapy; Z47.89 Encounter for other orthopedic aftercare; W18.39XA Other fall on same level, initial encounter; Y93.89 Activity, other specified; Y92.89 Other specified places as the place of occurrence of the external cause; Y99.8 Other external cause status
CPT/HCPCS: 10081